=== PATIENT | male | born 1960 | race Two or more races ===

== ENCOUNTER 2022-11-13 19:18 | Emergency (ER) | payer SELFPAY ==
[~2022-11-13] VITALS: Ht 170.2 cm; Wt 104.2 kg
[2022-11-13 20:36] LABS: Urine Bacteria FEW /hpf (None Seen); Urine Blood 3+ /uL (Negative); Urine WBC 1 /hpf (0 - 3)
[2022-11-13 20:38] LABS: Basophils # (auto) 0.1 10 ^3/uL (0-0.2); Basophils % (auto) 0.5 % (0.0-2.0); Eosinophils # (auto) 0 10 ^3/uL (0-0.8); Eosinophils % (auto) 0.1 % (0.0-7.0); Hematocrit 50.2 % (41.0-53.0); Lymphocytes # (auto) 1.9 10 ^3/uL (0.4-5.4); Lymphocytes % (auto) 14.2 % (10.0-50.0); Mean Corpuscular Hemoglobin 30.7 pg (28.0-32.0); Mean Corpuscular Hgb Conc. 33.8 g/dL (32.0-36.0); Mean Corpuscular Volume 90.7 fL (80.0-100.0); Monocytes # (auto) 1.2 10 ^3/uL (0-1.3); Monocytes % (auto) 8.9 % (0.0-12.0); Neutrophils # (auto) 10.4 10 ^3/uL (1.6-8.6); Neutrophils % (auto) 76.3 % (37.0-80.0); Red Blood Cells 5.53 10^6/uL (4.5-5.90); Red Cell Distribution Width 13.6 % (11.8-14.3); White Blood Cell 13.6 10^3/uL (4.4-10.8)
[2022-11-13 21:24] LABS: Albumin 4.4 g/dL (3.4-5.0); Calcium 9.7 mg/dL (8.5-10.1); Potassium 4.2 mmol/L (3.5-5.1)
[2022-11-13 21:27] LABS: BUN/Creatinine Ratio 16.2 (10.0-20.0); Bilirubin, Total 0.9 mg/dL (0.2-1.0); Total Protein 8.6 g/dL (6.4-8.2)
[2022-11-13] MEDS ORDERED: MORPHINE SULFATE 4 MG/ML SYR/VIAL IM ONE (21:30)
[2022-11-13 22:36] VITALS: BP 155/78
== END 2022-11-13 23:05 | disposition home or self-care (01) ==
LOC: ER 19:18
DX: R33.8 Other retention of urine (principal)
CPT/HCPCS: 36415; 51702; 80053; 81001; 85025; 96372; 99284; J2270

== ENCOUNTER 2025-01-12 01:21 | Emergency (ER) | payer SELFPAY ==
[~2025-01-12] VITALS: Ht 177.8 cm; Wt 94.0 kg
[2025-01-12 01:30] VITALS: BP 176/95; TEMP 98; O2SAT 97
--- NOTE | 2025-01-12 01:38 | ED.PDOC ---
General HPI Comments 64-year-old male came to ER due to urinary retention. Patient has history of benign prostatic hypertrophy, states he has been unable to urinate for the past 3 hours. Noted suprapubic abdominal pain. Denies any nausea or vomiting or fever. Chief Complaint: Urinary retention Time Seen by MD: 01:37 Reviewed notes: Nurses Notes Allergies: Coded Allergies: NO KNOWN ALLERGIES (Unverified , 11/13/22) Information Source: Patient Mode of Arrival: Ambulatory Severity: Moderate Inability to void: Complete Timing: Hours Duration: Since onset Has not urinated for: Hours Prehospital treatment: None Onset: Spontaneous Symptoms: Inability to void History of: BPH Location: Suprapubic associated signs and symptoms: Inability to Void Review of Systems REVIEW OF SYSTEMS: No fever, no chills, or fatigue HEENT: No sore throat, no earache, no congestion, no neck pain. Cardiac: No chest pain. No palpitations. Lungs: No shortness of breath, no cough. GI: No nausea, no vomiting, no diarrhea, no constipation, no abdominal pain : No dysuria, frequency, or urgency. No hematuria. (+) inability to void Musculoskeletal: No joint pain , no joint swelling, no extremity edema. Skin: No rash, no itching. Neuro: No headache, no dizziness, no weakness Vital Signs Vital Signs Date Time Temp Pulse Resp B/P (MAP) Pulse Ox O2 Delivery O2 Flow Rate FiO2 01/12/25 02:20 80 18 Room Air* 0 21 01/12/25 01:30 98.0 176/95 (122) 97 98.0 Physical Exam PHYSICAL EXAM: General: Awake, alert and oriented. No acute distress. Skin: Skin in warm, dry and intact without rashes or lesions. HEENT: The head is normocephalic and atraumatic. Conjunctivae are clear without exudates or hemorrhage. Sclera is non-icteric. Neck: Normal range of motion. No JVD. Cardiac: Regular rate Abdomen: Suprapubic fullness and tenderness. No CVA tenderness Respiratory: No signs of respiratory distress. No Stridor. Extremities: Upper and lower extremities are atraumatic in appearance without deformity. Neurological: The patient is awake, alert and oriented to person, place, and time with normal speech. Speech is clear. There is no facial asymmetry. Psychiatric: Appropriate mood and affect. Good judgement and insight. Past Medical History Past Medical History (Other): Benign prostatic hypertrophy Surgical History: Denies all surgeries Family History Family History: Reviewed,noncontributory to illness Social History Smoker: Non-Smoker Alcohol: Denies ETOH Use Drugs: Denies Drug Use Lives In: Home Was a procedure done? Was a procedure done?: No Differential Diagnosis Kidney stone (Female): N/A Kidney stone (Male): N/A Urinary Problem (Male): Bladder Outlet, Bladder Obstruction, Prostatitis, Urethritis, Urinary Retention, Urolithiasis, UTI X-Ray, Labs, Meds, VS Vital Signs Date Time Temp Pulse Resp B/P (MAP) Pulse Ox O2 Delivery O2 Flow Rate FiO2 01/12/25 02:20 80 18 Room Air* 0 21 01/12/25 01:30 98.0 80 22 176/95 (122) 97 98.0 Lab Test 01/12/25 01:33 Range/Units White Blood Count 11.2 H 4.4-10.8 10^3/uL Red Blood Count 5.29 4.5-5.90 10^6/uL Hemoglobin 16.2 13.5-17.5 g/dL Hematocrit 47.7 41.0-53.0 % Mean Corpuscular Volume 90.2 80.0-100.0 fL Mean Corpuscular Hemoglobin 30.6 28.0-32.0 pg Mean Corpuscular Hemoglobin Concent 33.9 32.0-36.0 g/dL Red Cell Distribution Width 13.8 11.8-14.3 % Platelet Count 244 140-450 10^3/uL Mean Platelet Volume 10.1 6.9-10.8 fL Neutrophils (%) (Auto) 70.8 37.0-80.0 % Lymphocytes (%) (Auto) 20.8 10.0-50.0 % Monocytes (%) (Auto) 5.9 0.0-12.0 % Eosinophils (%) (Auto) 1.9 0.0-7.0 % Basophils (%) (Auto) 0.6 0.0-2.0 % Neutrophils # (Auto) 8.0 1.6-8.6 10 ^3/uL Lymphocytes # (Auto) 2.3 0.4-5.4 10 ^3/uL Monocytes # (Auto) 0.7 0-1.3 10 ^3/uL Eosinophils # (Auto) 0.2 0-0.8 10 ^3/uL Basophils # (Auto) 0.1 0-0.2 10 ^3/uL Nucleated Red Blood Cells 0.1 % Sodium Level 140 136-145 mmol/L Potassium Level 4.0 3.5-5.1 mmol/L Chloride Level 107 98-107 mmol/L Carbon Dioxide Level 21 20-31 mmol/L Anion Gap 12 5-15 Blood Urea Nitrogen 10 9-23 mg/dL Creatinine 0.87 0.700-1.30 mg/dL Glomerular Filtration Rate Calc 98 >90 mL/min BUN/Creatinine Ratio 11.5 10.0-20.0 Serum Glucose 121 H 74-106 mg/dL Calcium Level 9.9 8.7-10.4 mg/dL Time of 1ST Reevaluation: 01:36 Reevaluation 1ST: Unchanged Patient Education/Counseling: Need For Follow Up Family Education/Counseling: No Family Present SEPSIS Sepsis Screen Physician Orders Bladder Scan (01/12/25 ) Urinalysis (01/12/25 01:24) Vital Signs Date Time Temp Pulse Resp B/P (MAP) Pulse Ox O2 Delivery O2 Flow Rate FiO2 01/12/25 02:20 80 18 Room Air* 0 21 01/12/25 01:30 98.0 80 22 176/95 (122) 97 98.0 Laboratory Tests Test 01/12/25 01:33 White Blood Count 11.2 10^3/uL (4.4-10.8) H Departure 1 Departure Time of Disposition: 02:11 Impression: Primary Impression: Urinary retention Additional Impression: Whitfield catheter in place Disposition: 01 HOME / SELF CARE / HOMELESS Condition: Stable Additional Instructions: INSTRUCCIONES DE SAMARA DE Urgencias Instrucciones: Nicole atentamente todas las instrucciones proporcionadas en scotty paquete. Aunque le hayan dado el samara del Departamento de Emergencias, esto no significa que tenga un "certificado de buena errol".Hoy no se delong realizado ningn diagnstico definitivo para rachel sntomas. Es posible que ests en proceso de desarrollar rocael enfermedad grave. Es por eso que debe regresar al servicio de urgencias sin falta si presenta algn sntoma nuevo o que empeora (especialmente si rachel sntomas incluyen dolor en el pecho, dificultad para respirar, dolor abdominal, fiebre, dolor de alpa, confusin, dificultad para anisha o caminar). Tambin es muy importante que consulte a un mdico de atencin primaria dentro de los prximos 3 a 5 bauman para realizar un seguimiento. Si no puede conseguir rocael ne[place], regrese al servicio de urgencias para rocael nueva evaluacin. Cuidado de un catter urinario permanente Tabla de contenido Cuidado de un catter urinario permanente Apndice Imgenes del pito Sonda Whitfield permanente para hombres Sonda Whitfield permanente para mujeres Descripcin general Rocael sonda urinaria es un tubo de plstico flexible que se utiliza para drenar la orina de la vejiga cuando rocael persona no puede orinar. La sonda se coloca en la vejiga insertndola a travs de la uretra. La uretra es el orificio que transporta la orina desde la vejiga hasta el exterior del cuerpo. Cuando la sonda est en la vejiga, se utiliza un pequeo baln para mantenerla en clark lugar. La sonda permite que la orina drene de la vejiga a rocael bolsa recolectora. Las sondas urinarias pueden usarse tanto en hombres (vase la figura 1 en el apndice) pau en mujeres (vase la figura 2 en el apndice) . Rocael sonda que permanece colocada tony un perodo ms charline se denomina sonda permanente. Un catter puede ser necesario debido a ciertas afecciones mdicas, pau agrandamiento de la prstata o problemas para controlar la orina. Puede usarse despus de rocael ciruga plvica o del tracto urinario. Tambin se utilizan catteres urinarios cuando la parte inferior del cuerpo est paralizada. Al ayudar a alguien con un catter, trate de estar relajado. Cuidar un catter puede ser incmodo para ambos. Si est tranquilo y no parece avergonzado, la persona podra sentirse ms cmoda. Cuidado del catter Use guantes desechables al manipular el catter. Asegrese de seguir todas las instrucciones del mdico. Lvese siempre las nancy antes y despus de terminar. Aqu hay algunas otras cosas que se deben recordar al cuidar el catter de alguien: Asegrese de que la orina salga del catter hacia la bolsa recolectora de orina. Y asegrese de que el tubo del catter no est torcido ni doblado. Mantenga la bolsa recolectora de orina por debajo del nivel de la vejiga. Por la noche, puede ser til colgarla al borde de la cama. Asegrese de que la bolsa recolectora de orina no arrastre ni tire del catter. Est gabbie ducharse con un catter y rocael bolsa recolectora de orina colocados, a menos que el mdico indique lo contrario. Revise si hay hinchazn o signos de infeccin en la shy alrededor del catter. Los signos de infeccin incluyen pus y piel irritada, hinchada, enrojecida o sensible. Limpie la shy alrededor del catter a diario con agua y jabn. Despus, squela con rocael toalla limpia. No aplique polvo ni locin sobre la piel alrededor del catter. No tire ni estire del catter. Las personas que usan un catter an pueden tener relaciones sexuales. Lo mejor es consultar con un mdico sobre las opciones disponibles. Vaciado de la bolsa del catter La bolsa recolectora de orina debe vaciarse regularmente. Es mejor vaciarla cuando est aproximadamente a la mitad de clark capacidad o antes de acostarse. Si el mdico le delong pedido que mida la cantidad de orina, hgalo antes de vaciarla en el inodoro. Cuando est listo para vaciar la bolsa, siga estos pasos: Pngase guantes desechables. Retire el jazmyn de drenaje de clark meryl, ubicada en la parte inferior de la bolsa recolectora. Kentrell la vlvula del jazmyn. Deje que la orina fluya de la bolsa al inodoro o a un recipiente. No permita que el tubo ni el desage toquen nada. Despus de vaciar la bolsa, cierre la vlvula y vuelva a colocar el jazmyn de drenaje en clark meryl. Qutate los guantes y tralos a la basura. Lvese las nancy con agua y jabn. Despus de retirar el catter Despus de que le quiten el catter urinario permanente, hay cosas que puede hacer para cuidarse. Rocael persona puede tener dificultad para orinar. Si esto ocurre, pruebe a sumergirse unos centmetros en agua tibia (bertin de asiento). Si la necesidad de orinar surge tony el bertin de asiento, puede ser ms fcil orinar mientras an est en la baera. Puede sentir algo de ardor al orinar las primeras veces. Si el ardor persiste, podra ser seal de rocael infeccin. Codi abundante lquido. Si necesita limitar la ingesta de lquidos debido a rocael enfermedad renal, cardaca o heptica, consulte con el mdico antes de aumentar la cantidad. Si el catter provoca alguna irritacin o sarpullido, puede ser til usar ropa interior de algodn holgada. Asegrese de contactar a clark mdico si nota algn problema o si no puede orinar en absoluto. Cundo pedir ayuda Llame a clark mdico ahora o busque atencin mdica inmediata si: Tiene sntomas de rocael infeccin urinaria. Estos pueden incluir: Dolor o ardor en el bajo vientre o la uretra. Rocael necesidad frecuente de orinar sin poder orinar mucho. Dolor en el flanco, que est savannah debajo de la caja torcica y por encima de la cintura a ambos lados de la espalda. Ronal en la orina. Rocael fiebre. Observa grandes cogulos de ronal en clark orina. No fluye orina o fluye muy poca orina hacia la bolsa tony 4 horas o ms. Preste atencin a los cambios en clark errol y asegrese de comunicarse con clark mdico si: El yana alrededor del catter se irrita, se hincha, se enrojece o se vuelve sensible, o drena pus desde l. Hay rocael fuga de orina en el lugar donde el catter ingresa al cuerpo. Crditos para el cuidado de un catter urinario permanente Actualizado al: 30 de [id number] Autor: Personal de [employer] ([email or web address]) Junta de santosh marshall ([email or web address] [email or web address]) Toda la educacin de [employer] es revisada por un equipo que incluye mdicos, enfermeras, profesionales avanzados, dietistas registrados y otros profesionales de la errol. Apndice Imgenes del pito Figura 1 Sonda Whitfield permanente para hombres catter de Whitfield Rocael sonda urinaria es un tubo pequeo y flexible que se inserta a travs de la uretra hasta la vejiga, permitiendo el drenaje de la orina. La uretra es el conducto que transporta la orina desde la vejiga hacia el exterior del cuerpo. Rocael sonda Whitfield permanente permanece colocada de forma continua. Para evitar que se salga, tiene un baln en un extremo que se infla con agua estril rocael vez dentro de la vejiga. Comments 64-year-old male who presents to the emergency department with urinary retention. Whitfield catheter placed in the emergency department with the 800 cc urine output. Patient does not have a primary care provider or insurance at this time. He was offered admission for further treatment, observation evaluation of urinary tension, he declines at this time. He is advised to return in the emergency department or follow up with the urgent care for re- evaluation within 3 days. I reviewed the following notes from the pt's past medical encounters: N/A The following tests were ordered, and results were reviewed by me: (See diagnostic results section) The following test were independently interpreted by me: N/A Additional information was gathered from interviewing the following independent historians: N/A I reviewed and agreed with the following test results read by other providers: N/A I discussed treatments and results with patient Decision regarding hospitalization or escalation of hospital level of care: Risks and benefits of admission for further treatment of patient's condition was considered however due to patient's stable condition patient will be discharged to follow up closely or return to care for worsening of condition or inability to follow up. Critical Care Note Critical Care Time?: No Stability Stability form required: No Heart Score Heart Score: Heart Score Response (Comments) Value History N/A 0 EKG N/A 0 Age N/A 0 Risk Factors N/A 0 Troponin N/A 0 Total 0 I personally scribed for HENOK MARTÍNEZ MD ([email or web address]) on 01/12/25 at 01:38. Electronically submitted by Lawrence Rico ([email or web address]). HENOK MARTÍNEZ MD Jan 12, 2025 01:38
[2025-01-12 01:43] LABS: Hematocrit 47.7 % (41.0-53.0); Hemoglobin 16.2 g/dL (13.5-17.5); Mean Corpuscular Hemoglobin 30.6 pg (28.0-32.0); Mean Corpuscular Volume 90.2 fL (80.0-100.0); Nucleated Red Blood Cells % 0.1 %
[2025-01-12 01:52] LABS: Potassium 4.0 mmol/L (3.5-5.1); Sodium 140 mmol/L (136-145)
[2025-01-12 01:53] LABS: Anion Gap 12 (5-15); Calcium 9.9 mg/dL (8.7-10.4); Carbon Dioxide 21 mmol/L (20-31)
[2025-01-12 01:55] LABS: Chloride 107 mmol/L (98-107)
[2025-01-12 01:58] LABS: BUN/Creatinine Ratio 11.5 (10.0-20.0); Blood Urea Nitrogen 10 mg/dL (9-23)
[2025-01-12 02:00] LABS: Glucose 121 mg/dL (74-106)
[2025-01-12 02:20] VITALS: PULSE 80; RESP 18
== END 2025-01-12 02:35 | disposition home or self-care (01) ==
LOC: ER 01:21
DX: R33.8 Other retention of urine (principal)
CPT/HCPCS: 36415; 51702; 80048; 85025; 99284; A4315